=== PATIENT | female | born 1995 ===

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

== ENCOUNTER 2017-02-02 21:42 | Emergency (ER) | payer BC ==
[2017-02-02 21:57] VITALS: BP 128/67; PULSE 68; RESP 18; TEMP 98.6; O2SAT 100
--- NOTE | 2017-02-02 22:04 | ED PDOC ---
HPI: Dental Pain/Injury Time Seen by Provider: 02/02/17 21:57 Chief Complaint (Nursing): Dental Pain History Per: Patient Additional Complaint(s): Pt. states for the past 3 days she's had atraumatic pain to the L upper gums. Pt. has been taking Advil without relief. Denies fever, trauma, discharge, earache, sore throat. Past Medical History Reviewed: Historical Data, Nursing Documentation, Vital Signs Vital Signs: Last Vital Signs Temp 98.6 F 02/02/17 21:55 Pulse 68 02/02/17 21:55 Resp 18 02/02/17 21:55 BP 128/67 02/02/17 21:55 Pulse Ox 100 02/02/17 21:55 - Family History Family History: States: No Known Family Hx - Home Medications Home Medications: Ambulatory Orders Medication Instructions Recorded Sulfamethoxazole/Trimethoprim 1 tab PO BID 5 Days 11/25/16 [Bactrim DS 800 mg-160 mg] Penicillin VK [Pen-Vee K] 500 mg PO Q6 #12 tab 02/02/17 Tramadol HCl [Ultram] 50 mg PO BID PRN #6 tablet 02/02/17 - Allergies Allergies/Adverse Reactions: Allergies Allergy/AdvReac Type Severity Reaction Status Date / Time No Known Allergies Allergy Verified 11/25/16 13:55 Review of Systems ROS Statement: Except As Marked, All Systems Reviewed And Found Negative Physical Exam - Physical Exam Appears: Positive for: Well, Non-toxic, No Acute Distress Skin: Positive for: Normal Color, Warm. Negative for: Rash ENT: Positive for: Other (Mild tenderness on L maxillary molar area without gingival swelling). Negative for: Pharyngeal Erythema, Tonsillar Exudate, Tonsillar Swelling - Laboratory Results Urine POC: Negative - ECG O2 Sat by Pulse Oximetry: 100 - Progress ED Course And Treament: Toradol 15mg IM given. Disposition - Clinical Impression Clinical Impression: Toothache - Patient ED Disposition Is Patient to be Admitted: No - Disposition Referrals: [facility] [Outside] Disposition: Routine/Home Disposition Time: 22:05 Condition: IMPROVED Additional Instructions: Follow up with your dentist tomorrow for further evaluation. Prescriptions: Penicillin VK [Pen-Vee K] 500 mg PO Q6 #12 tab Tramadol HCl [Ultram] 50 mg PO BID PRN #6 tablet PRN Reason: Other Instructions: Toothache (ED) Print Language: KAZAKH
== END 2017-02-02 22:51 | disposition home or self-care (01) ==
LOC: H.ER 21:42
DX: K08.89 Other specified disorders of teeth and supporting structures (principal)
CPT/HCPCS: 81025; 96372; 99282; J1885

== ENCOUNTER 2017-02-08 14:42 | Emergency (ER) | payer BC ==
[2017-02-08 15:03] VITALS: BP 118/68; PULSE 82; RESP 18; TEMP 98.7; O2SAT 100
--- NOTE | 2017-02-08 15:30 | ED PDOC ---
HPI: Allergic Reaction Time Seen by Provider: 02/08/17 15:18 Chief Complaint (Nursing): Abnormal Skin Integrity Chief Complaint (Provider): Rash History Per: Patient History/Exam Limitations: no limitations Onset/Duration Of Symptoms: Days Current Symptoms Are (Timing): Still Present Context: Other (new medication) Possible Cause: Medication Associated Symptoms: Skin Rash, Itching. denies: Chest Pain Home/EMS Treatment: Other (Claritin) Severity: Moderate Additional History Per: Patient Additional Complaint(s): The pt. is a 21yo female with PMHx of Depression, currently on Xanax, Lexapro and Trileptal for a month, present to the ED for evaluation of a non-painful, itchy skin rash present bilaterally on her arms, back, chest and abdomen for the past day. Pt. reports she was recently seen in this facility for a toothache and was given Rx Tramadol and Penicillin which she started taking on . She denies using any new clothing, lotion, detergent or eating any new foods. Pt additionally denies recent exposure to grass or other allergens. She reports taking Claritin for her symptoms without relief. She currently denies any chest pain, SOB, tongue swelling. She offers no additional medical complaints. Past Medical History Reviewed: Historical Data, Nursing Documentation, Vital Signs Vital Signs: Last Vital Signs Temp 98.7 F 02/08/17 15:25 Pulse 82 02/08/17 15:25 Resp 18 02/08/17 15:25 BP 118/68 02/08/17 15:25 Pulse Ox 100 02/08/17 15:25 - Medical History PMH: Depression - Surgical History Other surgeries: Eye surgery - Family History Family History: States: Unknown Family Hx - Home Medications Home Medications: Ambulatory Orders Medication Instructions Recorded Sulfamethoxazole/Trimethoprim 1 tab PO BID 5 Days 11/25/16 [Bactrim DS 800 mg-160 mg] Penicillin VK [Pen-Vee K] 500 mg PO Q6 #12 tab 02/02/17 Tramadol HCl [Ultram] 50 mg PO BID PRN #6 tablet 02/02/17 Clindamycin [Cleocin] 300 mg PO QID 7 Days 02/08/17 DiphenhydrAMINE [Benadryl] 25 mg PO Q8H PRN 5 Days 02/08/17 predniSONE [predniSONE Tab] 20 mg PO BID 5 Days 02/08/17 - Allergies Allergies/Adverse Reactions: Allergies Allergy/AdvReac Type Severity Reaction Status Date / Time No Known Allergies Allergy Verified 02/08/17 15:25 Review of Systems ROS Statement: Except As Marked, All Systems Reviewed And Found Negative Cardiovascular: Negative for: Chest Pain Respiratory: Negative for: Shortness of Breath Skin: Positive for: Rash (itchy rash on forearms, chest, back and abdomen) Physical Exam - Reviewed Nursing Documentation Reviewed: Yes Vital Signs Reviewed: Yes - Physical Exam Appears: Positive for: Well, Non-toxic, No Acute Distress Head Exam: Positive for: ATRAUMATIC, NORMAL INSPECTION, NORMOCEPHALIC Skin: Positive for: Rash (blanching erythema, mildly raised, nontender, no fluctuance, no discharge. Urticarial rash noted on back, bilateral arms, chest, abdomen, lower face and anterior neck.) Eye Exam: Positive for: Normal appearance ENT: Negative for: Other (lip swelling) Neck: Positive for: Painless ROM, Supple Cardiovascular/Chest: Positive for: Regular Rate, Rhythm Respiratory: Positive for: Normal Breath Sounds. Negative for: Respiratory Distress Gastrointestinal/Abdominal: Positive for: Normal Exam, Soft. Negative for: Tenderness Back: Negative for: L CVA Tenderness, R CVA Tenderness Extremity: Positive for: Normal ROM. Negative for: Tenderness, Pedal Edema Neurologic/Psych: Positive for: Alert, Oriented - ECG O2 Sat by Pulse Oximetry: 100 (RA) Pulse Ox Interpretation: Normal - Progress ED Course And Treament: 1601: Stable. AAOx3. Pain free. Likely allergic reaction. Stop pcn as possible cause. Will put on clinda for toothache. Disposition - Clinical Impression Clinical Impression: Allergic reaction - Patient ED Disposition Is Patient to be Admitted: No Counseled Patient/Family Regarding: Diagnosis, Need For Followup, Rx Given - Disposition Referrals: [facility] [Outside] - 02/10/17 Disposition: Routine/Home Disposition Time: 16:06 Condition: STABLE Additional Instructions: Return if not better in 3 days. Stop penicillin. Prescriptions: Clindamycin [Cleocin] 300 mg PO QID 7 Days DiphenhydrAMINE [Benadryl] 25 mg PO Q8H PRN 5 Days PRN Reason: Rash predniSONE [predniSONE Tab] 20 mg PO BID 5 Days Instructions: General Allergic Reaction (ED) Forms: [employer] (Georgian) Medical Decision Making Medical Decision Making: Time: 1517 Impression: Allergic reaction Plan: * Benadryl 25 mg PO * Prednisone 60 mg PO Pt advised to discontinue use of penicillin. Will give Rx Clindamycin to replace Penicillin and advised pt. to observe herself and return to the ED if symptoms return. Scribe Attestation: Documented by Jessica Balderas acting as a scribe for Manuel Price MD. Provider Attestation: All medical record entries made by the Scribe were at my direction and personally dictated by me. I have reviewed the chart and agree that the record accurately reflects my personal performance of the history, physical exam, medical decision making, and the department course for this patient. I have also personally directed, reviewed, and agree with the discharge instructions and disposition.
== END 2017-02-08 16:20 | disposition home or self-care (01) ==
LOC: H.ER 14:42
DX: T78.40XA Allergy, unspecified, initial encounter (principal); F32.9 Major depressive disorder, single episode, unspecified